=== PATIENT | female | born 1995 | race Caucasian/White ===

== ENCOUNTER 2020-02-04 16:35 | Emergency (ER) | payer MEDICAID ==
[~2020-02-04] VITALS: Ht 167.6 cm; Wt 101.2 kg
[2020-02-04 17:08] VITALS: BP 103/60; Ht 167.6 cm; Wt 101.2 kg
[2020-02-04 17:45] LABS: BASOPHIL % 0.7 % (0.2-1.3); PLATELET COUNT 313 x10^3mcL (179-408); RED CELL DISTRIBUTION WIDTH 13.6 % (12.3-17.7)
[2020-02-04 18:02] LABS: CALCIUM 8.6 mg/dL (8.5-10.1); CARBON DIOXIDE 27.7 mmol/L (21-32); CHLORIDE SERUM 101 mmol/L (98-107); CREATININE SERUM 0.6 mg/dL (0.6-1.0); GFR1 > 60 mL/min; GLUCOSE SERUM 94 mg/dL (74-106); POTASSIUM SERUM 3.9 mmol/L (3.5-5.1); SODIUM SERUM 137 mmol/L (136-145)
[2020-02-04 18:14] LABS: ALBUMIN 3.5 g/dL (3.4-5.0); ALKALINE PHOSPHATASE 49 U/L (46-116); ALT/SGPT 20 U/L (14-59); AST/SGOT 12 U/L (15-37); BILIRUBIN TOTAL 0.16 mg/dL (0.20-1.00); LIPASE 104 IU/L (73-393); TOTAL PROTEIN, SERUM 7.2 g/dL (6.4-8.2)
[2020-02-04 18:59] LABS: rbc morphology (normal/abnorm) NORMAL (NORMAL)
[2020-02-04 20:50] LABS: microscopic required? NO
[2020-02-04 21:05] LABS: urine erythrocyte NEGATIVE (NEGATIVE)
== END 2020-02-04 20:57 | disposition left against medical advice (07) ==
LOC: ED 16:35
PROVIDERS: Emergency Medicine
DX: O26.891 Other specified pregnancy related conditions, first trimester (principal); R10.9 Unspecified abdominal pain; Z3A.01 Less than 8 weeks gestation of pregnancy